=== PATIENT | male | born 1945 | race Caucasian/White ===

== ENCOUNTER → 2017-06-21 | Outpatient (CLI) | payer BC ==
[~2017-06-21] MED LIST: ADVIN10/60 INH; CLC100 PO; CLRD24 PO; FINA5TAB PO; LRTUNK PO; NITR-5 PO
== END | disposition home or self-care (01) ==
LOC: C.PATHSPEC 17:06
PROVIDERS: ATTEND Urology
DX: R39.15 Urgency of urination (principal)

== ENCOUNTER → 2018-01-31 | Outpatient (CLI) | payer BC | END | disposition home or self-care (01) | LOC: C.LABPBG 10:22 | PROVIDERS: ATTEND Urology | DX: R31.0 Gross hematuria (principal); R39.15 Urgency of urination ==

== ENCOUNTER → 2018-02-07 | Outpatient (CLI) | payer BC | END | disposition home or self-care (01) | LOC: C.LABPBG 13:39 | PROVIDERS: ATTEND Urology | DX: R30.0 Dysuria (principal); N50.89 Other specified disorders of the male genital organs; N40.1 Benign prostatic hyperplasia with lower urinary tract symptoms ==